=== PATIENT | female | born 1960 | race American Indian/Alaskan Native ===

== ENCOUNTER 2017-08-17 09:50 | Emergency (ER) | payer SELFPAY ==
[2017-08-17] MEDS ORDERED: CATAPRES ONE (10:35)
[2017-08-17] MEDS ORDERED: CATAPRES PO ONE (10:35)
[2017-08-17 10:58] LABS: Basophils % (Auto) 1.3 % (0.0-1.8); Eosinophils % (Auto) 2.7 % (0.0-4.3); Hematocrit 39.7 % (30.3-42.9); Hemoglobin 13.2 gm/dl (10.1-14.3); Mean Corpuscular HGB Conc 33 % (30-34); Mean Corpuscular Hemoglobin 28 pg (28-32); Mean Corpuscular Volume 85 fl (79-97); Platelet Count 344 K/mm3 (140-440); Red Blood Count 4.69 M/mm3 (3.65-5.03); White Blood Count 7.6 K/mm3 (4.5-11.0)
[2017-08-17 11:12] LABS: Bacteria,Urine 4+ /HPF (Negative); Bilirubin,Urine NEG (Negative); Blood,Urine SM (Negative); Ketones,Urine NEG (Negative); Leukocyte Esterase,Urine MOD (Negative); Mucus,Urine 3+ /HPF; Nitrite,Urine NEG (Negative); Urobilinogen,Urine < 2.0 mg/dL (<2.0)
[2017-08-17 11:19] LABS: Anion Gap 17 mmol/L; BUN/Creatinine Ratio 12; Blood Urea Nitrogen 7 mg/dL (7-17); Calcium 9.2 mg/dL (8.4-10.2); Carbon Dioxide 26 mmol/L (22-30); Chloride 102.3 mmol/L (98-107); Glucose 87 mg/dL (65-100); Potassium 3.9 mmol/L (3.6-5.0); Sodium 141 mmol/L (137-145)
[2017-08-17 11:21] LABS: Alanine Aminotransferase 12 units/L (7-56); Albumin 4.2 g/dL (3.9-5); Albumin/Globulin Ratio 1.1 %; Alkaline Phosphatase 86 units/L (35-129); Total Protein 8.1 g/dL (6.3-8.2)
[2017-08-17 11:28] LABS: Bilirubin,Direct < 0.2 mg/dL (0-0.2)
--- NOTE | 2017-08-17 11:33 | Emergency Department Report ---
ED General Adult HPI - General Chief complaint: High BP Stated complaint: HEADACHE/BLURRED VISON Time Seen by Provider: 08/17/17 10:56 Source: patient Mode of arrival: Ambulatory Limitations: No Limitations - History of Present Illness -: Gradual Associated Symptoms: denies other symptoms Treatments Prior to Arrival: none (OUT OF BP MEDS) - Related Data Previous Rx's Medication Instructions Recorded Last Taken Type Hydrochlorothiazide [HCTZ] 25 mg PO QDAY #30 tablet 08/17/17 Unknown Rx Lisinopril [Zestril] 10 mg PO DAILY #30 tablet 08/17/17 Unknown Rx Allergies Allergy/AdvReac Type Severity Reaction Status Date / Time No Known Allergies Allergy Unverified 02/29/16 10:35 ED Review of Systems ROS: Stated complaint: HEADACHE/BLURRED VISON Other details as noted in HPI Comment: All other systems reviewed and negative Constitutional: no symptoms reported, see HPI. denies: chills Eyes: as per HPI. denies: eye pain ENT: as per HPI. denies: ear pain, throat pain Respiratory: no symptoms reported, see HPI. denies: cough, orthopnea, shortness of breath, SOB with exertion, SOB at rest, stridor Cardiovascular: as per HPI. denies: chest pain, palpitations, dyspnea on exertion, orthopnea, edema, syncope, paroxysmal nocturnal dyspnea Endocrine: no symptoms reported, see HPI. denies: excessive sweating, flushing , intolerance to cold, intolerance to heat Gastrointestinal: as per HPI. denies: abdominal pain, nausea, vomiting Genitourinary: as per HPI. denies: urgency, dysuria Musculoskeletal: as per HPI. denies: back pain Skin: as per HPI. denies: rash, lesions Neurological: as per HPI, headache (OFF AND ON). denies: weakness, numbness, paresthesias, confusion, abnormal gait, vertigo Psychiatric: as per HPI. denies: anxiety, depression Hematological/Lymphatic: as per HPI. denies: easy bleeding ED Past Medical Hx - Past Medical History Previous Medical History?: Yes Hx Hypertension: Yes - Surgical History Past Surgical History?: Yes Hx Cholecystectomy: Yes Additional Surgical History: Hernia repair - Social History Smoking Status: Current Every Day Smoker Substance Use Type: Alcohol, Marijuana, Prescribed - Medications Home Medications: Home Medications Medication Instructions Recorded Confirmed Last Taken Type Hydrochlorothiazide [HCTZ] 25 mg PO QDAY #30 tablet 08/17/17 Unknown Rx Lisinopril [Zestril] 10 mg PO DAILY #30 tablet 08/17/17 Unknown Rx ED Physical Exam - General Limitations: No Limitations General appearance: alert - Head Head exam: Present: normocephalic - Eye Eye exam: Present: PERRL - ENT ENT exam: Present: mucous membranes moist - Neck Neck exam: Present: normal inspection - Respiratory Respiratory exam: Present: normal lung sounds bilaterally - Cardiovascular Cardiovascular Exam: Present: regular rate - GI/Abdominal GI/Abdominal exam: Present: soft, normal bowel sounds - Rectal Rectal exam: Present: deferred - Extremities Exam Extremities exam: Present: normal inspection, full ROM, normal capillary refill. Absent: tenderness - Back Exam Back exam: Present: normal inspection, full ROM. Absent: tenderness, CVA tenderness (R), CVA tenderness (L) - Neurological Exam Neurological exam: Present: alert, oriented X3, CN II-XII intact, normal gait, reflexes normal - Psychiatric Psychiatric exam: Present: normal affect, normal mood. Absent: depressed, agitated - Skin Skin exam: Present: warm, dry, intact, normal color. Absent: rash ED Course Vital Signs 08/17/17 08/17/17 10:23 10:37 Temperature 98.2 F Pulse Rate 82 82 Respiratory 18 Rate Blood Pressure 181/107 181/107 O2 Sat by Pulse 100 Oximetry - Reevaluation(s) Reevaluation #1: 08/17/17 11:42 TO ER W DELAROSA P RUNNING OUT OF HER HCTZ SHE NEVER TOOK NORVASC BC OF COST BP DEC P CLONIDINE PO WHEN ARRIVES TO FT NO DELAROSA NEURO INTACT NO CP NO SOB EDUCATED ON FREE MEDS AT [facility] DISCUSSED PCP LABS NOTED UA NOTED NO DYSURIA OR FREQUENCY NO FEVER DISCUSSED URINE W PT. WILL MONITOR GIVEN NO S/S. NO HX UTI. DC HOME W DC POC BP 148/80 ON DC AMBULATORY AND WO COMPLAINTS ED Medical Decision Making - Lab Data Result diagrams: 08/17/17 10:39 08/17/17 10:39 - Medical Decision Making SEE NOTE Critical care attestation.: If time is entered above; I have spent that time in minutes in the direct care of this critically ill patient, excluding procedure time. ED Disposition Clinical Impression: Hypertension, Medication refill Disposition: DC-01 TO HOME OR SELFCARE Is pt being admited?: No Does the pt Need Aspirin: No Condition: Stable Instructions: Hypertension (ED) Additional Instructions: LOW SALT DIET TAKE MEDS INSTRUCTED FOLLOW UP PCP INSTRUCTED SEE LIST HERE Prescriptions: Hydrochlorothiazide [HCTZ] 25 mg PO QDAY #30 tablet Lisinopril [Zestril] 10 mg PO DAILY #30 tablet Referrals: PRIMARY CARE, [Primary Care Provider] - 3-5 Days [place] WETZ[facility] MD [Staff Physician] - 3-5 Days [facility] [Outside] - 3-5 Days [facility] [Outside] - 3-5 Days [facility] [Outside] - 3-5 Days [facility] [Outside] - 3-5 Days [facility] [Outside] - 3-5 Days Time of Disposition: 11:30
[2017-08-17 12:04] VITALS: BP 160/99
== END 2017-08-17 12:05 | disposition home or self-care (01) ==
LOC: ED 09:50
DX: I10 Essential (primary) hypertension (principal); F17.200 Nicotine dependence, unspecified, uncomplicated; F12.10 Cannabis abuse, uncomplicated; Z90.49 Acquired absence of other specified parts of digestive tract
CPT/HCPCS: 36415; 80048; 80074; 81001; 85025; 99283

== ENCOUNTER 2017-08-18 03:00 | Emergency (ER) | payer SELFPAY ==
[2017-08-18] MEDS ORDERED: CATAPRES ONE (03:20)
[2017-08-18] MEDS ORDERED: CATAPRES PO ONE (03:38)
[2017-08-18 03:39] VITALS: BP 205/112
== END 2017-08-18 04:00 | disposition left against medical advice (07) ==
LOC: ED 03:00
DX: R07.9 Chest pain, unspecified (principal); Z53.21 Procedure and treatment not carried out due to patient leaving prior to being seen by health care provider
CPT/HCPCS: 93005; 93010

== ENCOUNTER 2017-08-20 11:20 | Emergency (ER) | payer SELFPAY ==
--- NOTE | 2017-08-20 14:44 | Emergency Department Report ---
ED Headache HPI - General Chief Complaint: Headache Stated Complaint: HEADACHE, FEELS FAINT Time Seen by Provider: 08/20/17 14:08 Source: patient - History of Present Illness Initial Comments: 49-year-old female here with headache since Friday. Patient describes a frontal headache with pressure in the center of her head. She states she was here in the emergency department on Friday and was evaluated and discharged home with new blood pressure medications. She states that her blood pressure better and she is taking her medications but her headache is persistent and worsened. She's had some nausea with it. No numbness tingling paresthesias or focal neurological complaints. No fevers chills. Timing/Duration: 24 hours Quality: moderate Recent Head Trauma: no recent headache/trauma Associated Symptoms: denies symptoms, nausea/vomiting Allergies/Adverse Reactions: Allergies No Known Allergies Allergy (Verified 08/20/17 11:24) Home Medications: Ambulatory Orders Hydrochlorothiazide [HCTZ] 25 mg PO QDAY #30 tablet 08/17/17 Lisinopril [Zestril] 10 mg PO DAILY #30 tablet 08/17/17 Diclofenac Sodium [Diclofenac Sodium ER] 100 mg PO DAILY PRN #30 tab.er.24h ED Review of Systems ROS: Stated complaint: HEADACHE, FEELS FAINT Other details as noted in HPI Comment: All other systems reviewed and negative Constitutional: denies: chills, fever Eyes: denies: eye pain, eye discharge, vision change ENT: denies: ear pain, throat pain Respiratory: denies: cough, shortness of breath, wheezing Cardiovascular: denies: chest pain, palpitations Endocrine: no symptoms reported Gastrointestinal: nausea. denies: abdominal pain, diarrhea Genitourinary: denies: urgency, dysuria, discharge Musculoskeletal: denies: back pain, joint swelling, arthralgia Skin: denies: rash, lesions Neurological: headache. denies: weakness, paresthesias Psychiatric: denies: anxiety, depression Hematological/Lymphatic: denies: easy bleeding, easy bruising ED Past Medical Hx - Past Medical History Hx Hypertension: Yes - Surgical History Hx Cholecystectomy: Yes Additional Surgical History: Hernia repair. x2 - Family History Family history: no significant - Social History Smoking Status: Current Some Day Smoker Substance Use Type: None - Medications Home Medications: Home Medications Medication Instructions Recorded Confirmed Last Taken Type Hydrochlorothiazide [HCTZ] 25 mg PO QDAY #30 tablet 08/17/17 Unknown Rx Lisinopril [Zestril] 10 mg PO DAILY #30 tablet 08/17/17 Unknown Rx Diclofenac Sodium [Diclofenac 100 mg PO DAILY PRN #30 tab.er.24h 08/20/17 Unknown Rx Sodium ER] ED Physical Exam - General Limitations: No Limitations General appearance: alert, in no apparent distress - Head Head exam: Present: atraumatic, normocephalic - Eye Eye exam: Present: normal appearance. Absent: scleral icterus, conjunctival injection, nystagmus - ENT ENT exam: Present: mucous membranes moist - Neck Neck exam: Present: normal inspection - Respiratory Respiratory exam: Present: normal lung sounds bilaterally. Absent: respiratory distress, wheezes, rales - Cardiovascular Cardiovascular Exam: Present: regular rate, normal rhythm, normal heart sounds. Absent: systolic murmur, diastolic murmur, rubs, gallop - GI/Abdominal GI/Abdominal exam: Present: soft, normal bowel sounds - Extremities Exam Extremities exam: Present: normal inspection - Back Exam Back exam: Present: normal inspection - Neurological Exam Neurological exam: Present: alert, oriented X3 - Psychiatric Psychiatric exam: Present: normal affect, normal mood - Skin Skin exam: Present: warm, dry, intact, normal color. Absent: rash ED Course Vital Signs 08/20/17 11:25 Temperature 98.4 F Pulse Rate 88 Respiratory 16 Rate Blood Pressure 135/78 O2 Sat by Pulse 98 Oximetry ED Medical Decision Making - Lab Data Result diagrams: 08/20/17 14:22 08/20/17 14:22 Laboratory Results - last 24 hr 08/20/17 08/20/17 14:22 14:22 WBC 9.1 RBC 4.67 Hgb 13.2 Hct 40.0 MCV 86 MCH 28 MCHC 33 RDW 16.3 H Plt Count 327 Lymph % (Auto) 43.7 H [place] % (Auto) 8.7 H Eos % (Auto) 1.7 Baso % (Auto) 0.6 Lymph # 4.0 [place] # 0.8 Eos # 0.2 Baso # 0.1 Seg Neutrophils % 45.3 Seg Neutrophils # 4.1 Sodium 145 Potassium 4.2 Chloride 105.4 Carbon Dioxide 26 Anion Gap 18 BUN 18 H Creatinine 0.9 Estimated GFR > 60 BUN/Creatinine Ratio 20 Glucose 82 Calcium 9.5 - Medical Decision Making 57-year-old female recent 3 days worth of headache. Nonfocal neurological exam. I do not believe that she's had a stroke. Plan to get a head CT and repeat basic labs and if negative plan discharge the patient home after treatment of her headache. Head CT negative. Plan discharge patient home with follow-up. Plan to discharge her home with NSAIDs. Portions of this chart were dictated with dictation software. There may be dictation errors contained within this note. Critical care attestation.: If time is entered above; I have spent that time in minutes in the direct care of this critically ill patient, excluding procedure time. ED Disposition Clinical Impression: Headache Disposition: DC-01 TO HOME OR SELFCARE Is pt being admited?: No Condition: Stable Instructions: Tension Headache (ED) Prescriptions: Diclofenac Sodium [Diclofenac Sodium ER] 100 mg PO DAILY PRN #30 tab.er.24h PRN Reason: Pain Referrals: PRIMARY CARE, [Primary Care Provider] - 3-5 Days
[2017-08-20] MEDS: TORADOL IV ONE (14:59)
[2017-08-20] MEDS: REGLAN IV ONE (14:59)
[2017-08-20 15:08] LABS: Basophils % (Auto) 0.6 % (0.0-1.8); Eosinophils % (Auto) 1.7 % (0.0-4.3); Hemoglobin 13.2 gm/dl (10.1-14.3); Mean Corpuscular HGB Conc 33 % (30-34); Mean Corpuscular Hemoglobin 28 pg (28-32); Mean Corpuscular Volume 86 fl (79-97); Platelet Count 327 K/mm3 (140-440); Red Blood Count 4.67 M/mm3 (3.65-5.03); Red Cell Distribution Width 16.3 % (13.2-15.2); White Blood Count 9.1 K/mm3 (4.5-11.0)
--- NOTE | 2017-08-20 15:19 | Cat Scan Report ---
CT scan of head without IV contrast: History: Headache Findings: Ventricles are normal in size and midline in location. No evidence of acute ischemia, hemorrhage or mass. No extra-axial fluid collection. Normal brainstem and cerebellum. Normal sinuses and mastoid air cells. Impression: No acute intracranial abnormality.
[2017-08-20 15:48] LABS: Anion Gap 18 mmol/L; BUN/Creatinine Ratio 20; Blood Urea Nitrogen 18 mg/dL (7-17); Calcium 9.5 mg/dL (8.4-10.2); Carbon Dioxide 26 mmol/L (22-30); Chloride 105.4 mmol/L (98-107); Glucose 82 mg/dL (65-100); Potassium 4.2 mmol/L (3.6-5.0); Sodium 145 mmol/L (137-145)
[2017-08-20 18:30] VITALS: BP 132/72
== END 2017-08-20 18:28 | disposition home or self-care (01) ==
LOC: ED 11:20
DX: R51 Headache (principal); I10 Essential (primary) hypertension; F17.200 Nicotine dependence, unspecified, uncomplicated
CPT/HCPCS: 36415; 70450; 80048; 85025; 96374; 96375; 99284; J1885; J2765